=== PATIENT | female | born 1965 | race Caucasian/White ===

== ENCOUNTER 2018-12-29 09:31 | Emergency (ER) | payer OTHER, SELFPAY ==
--- NOTE | 2018-12-29 09:45 | DI.RAD.S_ITS ---
PROCEDURE: XR ELBOW RT MIN 3V INDICATIONS: injury TECHNIQUE: 3 views of the elbow were acquired. COMPARISON: None. FINDINGS: Bones: Subtle cortical irregularity involving anterior aspect of radial head concerning for subtle nondisplaced radial head fracture. No dislocation. No suspicious bony lesions. Soft tissues: Slight displacement of anterior fat pad is seen suggestive of joint effusion. No suspicious soft tissue calcifications. IMPRESSION: Findings concerning for a subtle nondisplaced fracture involving radial head/neck anterior aspect. Small joint effusion. Dictated by: Jewel Palmer M.D. on 12/29/2018 at 10:25 Approved by: Jewel Palmer M.D. on 12/29/2018 at 10:27
--- NOTE | 2018-12-29 09:46 | DI.RAD.S_ITS ---
PROCEDURE: XR FOREARM RT 2V INDICATIONS: injury TECHNIQUE: 2 views of the forearm were acquired. COMPARISON: None. FINDINGS: Bones: Subtle radiolucency involving anterior aspect of radial head is seen. A nondisplaced fracture in this area cannot be excluded. No other fracture or dislocation is seen in right forearm. 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 Soft tissues: No suspicious soft tissue calcifications or masses. IMPRESSION: Finding may represent subtle nondisplaced fracture involving anterior aspect of radial head. No other forearm fracture or dislocation. Dictated by: Jewel Palmer M.D. on 12/29/2018 at 10:27 Approved by: Jewel Palmer M.D. on 12/29/2018 at 10:28
[2018-12-29 09:47] VITALS: BP 146/93; PULSE 78; RESP 20; TEMP 36.8; O2SAT 98
--- NOTE | 2018-12-29 11:52 | ED.UPPEXIN ---
HPI - Extremity Injury (Upper) General Chief Complaint: Extremity Injury, Upper Stated Complaint: wall fell, hit back of head and arm Time Seen by Provider: 12/29/18 09:43 Source: patient and family Mode of arrival: ambulatory Limitations: no limitations History of Present Illness HPI narrative: 53-year-old female, nonsmoker, otherwise healthy presents with a work related injury suffered this afternoon. A large heavy shelving unit fell into her and she attempt to protect herself with an outstretched right arm. She has significant pain at her elbow particularly with any range of motion. Additionally she fell back and struck her head and has pain in her midback. She denies any loss of consciousness, persistent vomiting or use of blood thinners, alcohol or street drugs. Her back pain is worse with motion and improves with rest. She denies shortness of breath. MD complaint: injury to: elbow Onset (ago): hour(s) Other injuries: back Handedness: right Place: work Severity: mild Relieving factors: rest Exacerbating factors: immobilization and movement of extremity Context: direct blow Related Data Previous Rx's Medication Instructions Recorded hydrocodone-acetaminophen 1 tab PO Q4-6H PRN #10 tab 12/29/18 Allergies Allergy/AdvReac Type Severity Reaction Status Date / Time No Known Drug Allergies Allergy Verified 12/29/18 09:44 Review of Systems Constitutional Denies chills, Denies fever(s), Denies lethargy and Denies weakness Eyes Denies change in vision, Denies eye discharge, Denies irritation and Denies loss of vision ENT Ears, Nose, Mouth, and Throat: Denies change in voice, Denies neck pain and Denies sore throat Cardiovascular Denies chest pain, Denies irregular heart rhythm, Denies lightheadedness, Denies palpitations, Denies dyspnea, Denies dyspnea on exertion and Denies orthopnea Respiratory Denies cough, Denies dyspnea, Denies dyspnea on exertion and Denies wheezing Gastrointestinal Gastrointestinal: Denies abdominal pain, Denies change in bowel habits, Denies diarrhea, Denies nausea and Denies vomiting Genitourinary Denies hematuria, Denies flank pain, Denies urinary incontinence and Denies urinary urgency Musculoskeletal Reports back pain, Reports joint swelling and Denies neck pain Integumentary/Breasts Denies pruritus, Denies erythema, Denies rash and Denies wounds Neurologic Denies confusion, Denies loss of vision and Denies weakness Psychiatric Denies anxiety, Denies confusion, Denies depression, Denies homicidal ideation and Denies suicidal ideation Endocrine Denies palpitations Hematologic/Lymphatic Denies easy bruising Allergic/Immunologic Denies wheezing PFSH Social History Smoking Status: Never smoker Social History Smoking Status: Never smoker Exam Narrative Exam Narrative: 53-year-old female, appears stated age, obviously uncomfortable and splinting her right elbow Initial Vital Signs Initial Vital Signs: Vital Signs Temperature 98.3 F 12/29/18 09:47 Pulse Rate 78 12/29/18 09:47 Respiratory Rate 20 12/29/18 09:47 Blood Pressure 146/93 H 12/29/18 09:47 Pulse Oximetry 98 12/29/18 09:47 Const General: cooperative and in distress Orientation: alert HENMT Head: normal to inspection Nose: external nose normal Face and sinus: normal facial exam Eyes General: appearance normal, both eyes and all related structures Pupils: PERRL EOM: EOM intact bilaterally Neck Neck: normal visual inspection, trachea midline, No midline deformity and No tender Chest Chest: normal inspection of the chest Resp Effort & Inspection: normal respiratory effort, able to speak in complete sentences, no respiratory distress and no use of accessory muscles Auscultation: clear to auscultation bilaterally, no rales, no rhonchi and no wheezes Cardio Rate: regular rate Rhythm: regular rhythm Heart Sounds: no click, no gallops, no murmurs and no rubs Pulses: normal peripheral pulses GI Inspection: non-distended Palpation: soft, no hepatosplenomegaly, No guarding, No pulsatile mass and No tender Auscultation: normal bowel sounds Back/Spine/Pelvis Back: No CVA tenderness Thoracic/Lumbar Spine: thoracic spinal tenderness Skin General: no rashes or lesions noted, No jaundice and No petechiae Neuro General: alert, oriented x3, gait normal and no focal motor deficits Speech: speech normal Extrem Right upper extremity: elbow/forearm Details: tenderness, abnormal ROM and distal pulses intact Procedures Orthopedic Splinting/Casting Injury #1: Side: right Upper Extremity Injury Location: elbow Upper Extremity Immobilizer: sling/shoulder immobilizer Post splinting neuro exam: intact Post splinting vascular exam: intact Placed by: Nursing Course Orders Ordered: ED Orders 12/29/18 12:19 XR thoracic spine 2V Stat Vital Signs - 8 hr 12/29/18 13:48 Pulse Rate 71 Respiratory Rate 16 Blood Pressure 144/91 H Pulse Oximetry 100 MDM - Extremity Injury (Upper) Medical Records Attestation: I reviewed the patient's medical records. Lab Data Attestation: I reviewed the patient's lab results. Imaging Data forearm Xray: Radiologist's impression: [address] [address] XRay Report Signed Patient: Iain Escobedo#: [id number] : 1965Acct:[id number] Age/Sex: 53 / FDate of Service: 12/29/18 Loc: ED Accession Number: [id number] Procedure: XR elbow RT min 3V Ordering Provider: Donte Bowen D.O. PROCEDURE: XR ELBOW RT MIN 3V INDICATIONS: injury TECHNIQUE: 3 views of the elbow were acquired. COMPARISON: None. FINDINGS: Bones: Subtle cortical irregularity involving anterior aspect of radial head concerning for subtle nondisplaced radial head fracture. No dislocation. No suspicious bony lesions. Soft tissues: Slight displacement of anterior fat pad is seen suggestive of joint effusion. No suspicious soft tissue calcifications. IMPRESSION: Findings concerning for a subtle nondisplaced fracture involving radial head/neck anterior aspect. Small joint effusion. Dictated by: Jewel Palmer M.D. on 12/29/2018 at 10:25 Approved by: Jewel Palmer M.D. on 12/29/2018 at 10:27 Elbow Xray: Radiologist's impression: [address] [address] XRay Report Signed Patient: Anaya Escobedo#: [id number] : 1965Acct:[id number] Age/Sex: 53 / FDate of Service: 12/29/18 Loc: ED Accession Number: [id number] Procedure: XR forearm RT 2V Ordering Provider: Donte Bowen D.O. PROCEDURE: XR FOREARM RT 2V INDICATIONS: injury TECHNIQUE: 2 views of the forearm were acquired. COMPARISON: None. FINDINGS: Bones: Subtle radiolucency involving anterior aspect of radial head is seen. A nondisplaced fracture in this area cannot be excluded. No other fracture or dislocation is seen in right forearm. 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 Soft tissues: No suspicious soft tissue calcifications or masses. IMPRESSION: Finding may represent subtle nondisplaced fracture involving anterior aspect of radial head. No other forearm fracture or dislocation. Dictated by: Jewel Palmer M.D. on 12/29/2018 at 10:27 Approved by: Jewel Palmer M.D. on 12/29/2018 at 10:28 Discharge Plan Departure Patient Disposition: Home Clinical Impression: Closed fracture of radial head Qualifiers: Encounter type: initial encounter Fracture alignment: nondisplaced Laterality: right Qualified Code(s): S52.124A - Nondisplaced fracture of head of right radius, initial encounter for closed fracture Back contusion Qualifiers: Encounter type: initial encounter Laterality: unspecified laterality Qualified Code(s): S20.229A - Contusion of unspecified back wall of thorax, initial encounter Discharge Date/Time: 12/29/18 13:50 Interventions: ED Discharge Assessment Last Done: 12/29/18 13:48 Instructions: DI for Elbow Fracture Activity Restrictions/Additional Instructions: *You have been diagnosed with [ right radial head fracture, thoracic spine contusion ] *What to do: *Take medications as directed *Follow up with [facility] in 2-3 days, call for an appointment. Let them know you were seen in the Emergency Department and that we ask that you be seen in follow up *Return to ER if you should have any new, worsening or concerning symptoms You have been prescribed narcotic medications. While on these medications you cannot drive or operate heavy machinery. Additionally you cannot sign legal documents or perform any duties such as this. Many people get constipated on narcotic medications so it would be advisable to discuss stool softeners with the pharmacist when you sweet pickle maker your prescription. Please understand that we cannot provide further refills of narcotics or controlled substances through the ED and your pain management will need to be through your Primary Care Provider Prescriptions: New hydrocodone-acetaminophen 5-325 mg tablet 1 tab PO Q4-6H PRN (Reason: pain) Qty: 10 RF: 0 Referrals: Matilde Cuenca MD [Physician] -
--- NOTE | 2018-12-29 12:19 | DI.RAD.S_ITS ---
PROCEDURE: XR THORACIC SPINE 3V INDICATIONS: midline tenderness TECHNIQUE: 2 views of the thoracic spine were acquired. COMPARISON: None. FINDINGS: Bones: No fractures or dislocations. No suspicious bony lesions. 12 pairs of ribs are noted, and appear intact where visualized. Soft tissues: No paravertebral stripe thickening. IMPRESSION: Mild degenerative disc disease, no trauma found. Dictated by: Kana Bass M.D. on 12/29/2018 at 13:25 Approved by: Kana Bass M.D. on 12/29/2018 at 13:25
--- NOTE | 2018-12-29 13:46 | PC.NURSE ---
I agree with all the assessments and treatments completed by student nurse.
[2018-12-29 13:48] VITALS: BP 144/91; PULSE 71; RESP 16; O2SAT 100
== END 2018-12-29 13:50 | disposition home or self-care (01) ==
PROVIDERS: Emergency Provider Emergency Medicine
DX: S52.124A Nondisplaced fracture of head of right radius, initial encounter for closed fracture (principal); W22.8XXA Striking against or struck by other objects, initial encounter; Y99.0 Civilian activity done for income or pay
CPT/HCPCS: 72070; 73080; 73090; 99282; 99283